=== PATIENT | female | born 1985 | race Caucasian/White ===

== ENCOUNTER 2016-05-30 12:22 | Emergency (ER) | payer OTHER ==
[~2016-05-30] VITALS: Ht 177.8 cm; Wt 103.0 kg
[~2016-05-30 12:22] MED LIST: CITRACAL PO; FERR89TA PO; FOLI-49 PO; PREN1TAB62 PO
[2016-05-30 12:25] VITALS: Ht 177.8 cm; Wt 103.0 kg
[2016-05-30 14:21] LABS: ADD SCAN DIFF NO
[2016-05-30 14:25] LABS: BASOPHILS % 0.3 % (0.0-2.0); EOSINOPHILS % 0.6 % (0.0-7.0); HEMATOCRIT 40.7 % (37.0-47.0); HEMOGLOBIN 14.4 g/dl (12.0-16.0); LYMPHOCYTES # 1.7 10^3/ul (0.8-2.9); LYMPHOCYTES % 24.9 % (15.0-51.0); MEAN CORPUSCULAR HEMOGLOBIN 34.2 pg (29.0-33.0); MEAN CORPUSCULAR HGB CONC 35.4 g/dl (32.0-37.0); MEAN CORPUSCULAR VOLUME 96.7 fl (82.0-101.0); MEAN PLATELET VOLUME 10.4 fl (7.4-10.4); MONOCYTE # 0.5 10^3/ul (0.3-0.9); MONOCYTES % 7.8 % (0.0-11.0); NEUTROPHIL # 4.5 10^3/ul (1.6-7.5); NEUTROPHILS % 66.1 % (39.0-77.0); PLATELET COUNT 237 10^3/UL (140-415); RED BLOOD COUNT 4.21 10^6/ul (4.20-5.40); RED CELL DISTRIBUTION WIDTH 11.5 % (11.5-14.5); WHITE BLOOD COUNT 6.8 10^3/ul (4.8-10.8)
[2016-05-30 14:31] LABS: ADD UMIC YES; URINE BILIRUBIN (Dip) NEGATIVE (NEGATIVE); URINE BLOOD (Dip) TRACE (NEGATIVE); URINE COLOR LT. YELLOW (YELLOW); URINE GLUCOSE (Dip) NEGATIVE (NEGATIVE); URINE KETONES (Dip) NEGATIVE (NEGATIVE); URINE LEUKOCYTE ESTERASE (Dip) 1+ (NEGATIVE); URINE NITRITE (Dip) NEGATIVE (NEGATIVE); URINE TOTAL PROTEIN (Dip) TRACE (NEGATIVE); URINE UROBILINOGEN (Dip) 0.2 E.U./dL (0.1-1.0)
[2016-05-30 14:40] LABS: BACTERIA,URINE FEW; MUCUS,URINE MODERATE
--- NOTE | 2016-05-30 14:59 | RADRPT ---
PROCEDURE: US OB. CLINICAL INDICATION: Vaginal bleeding TECHNIQUE: Transabdominal and transvaginal views of the pelvis are available for review. COMPARISON: No prior studies are available for comparison. FINDINGS: There is a single intrauterine gestation with the crown-rump length measuring 2.3 cm and the gestat ional sac measuring 4.4 cm, corresponding to a gestational age of 9 weeks and 4 days. The heart rate is noted at 182 bpm. The ovaries are normal in size and echogenicity. Normal Doppler flow is identified in both ovaries. The right ovary measures 4.3 x 2.1 cm. The left ovary measures 3.6 x 3.2 cm. There is no free fluid. RPTAT: AA IMPRESSION: Single live intrauterine with an estimated gestational age of 9 weeks and 4 days, based on ultrasound measurements. STEPHEN based on ultrasound measurements is 12/29/16. .Yang Monge MD, MD Date Time Electronically viewed and signed by .Yang Monge MD, on 05/30/2016 14:58 .S/
[2016-05-30] MEDS ORDERED: CEPH-443 PO (15:35)
--- NOTE | 2016-05-30 15:46 | ERD ---
ER Documentation Chief Complaint Date/Time DATE: 05/30/16 TIME: 15:37 Chief Complaint pelvic pain , x8 weeks HPI Patient is a 30-year-old female, G4, P3, who presents to the emergency department with low back pain, pelvic pain and vaginal spotting. Patient states she has had pain intermittently for the last 3 weeks. Patient states the pain originates in her lower back and radiates into her pelvic region. Patient states that the pain has been getting gradually worse. Patient states that today she started having vaginal spotting. Patient denies wearing any pads. Patient has not seen an [facility] yet. Patient denies any fevers, chills. Patient does admit to nausea and vomiting. Patient does have some pain with urination and suprapubic tenderness. Patient denies any frequency, urgency or hematuria. Patient states her last menstrual period was on March 14, 2016. Patient denies any saddle anesthesia, urinary incontinence, stool incontinence. ROS All systems reviewed and are negative except as per history of present illness. Medications Home Meds Active Scripts Cephalexin* (Keflex*) 500 Mg Capsule, 500 MG PO QID for 7 Days, CAP Prov:VERONICA BECKHAM PA-C 05/30/16 Reported Medications Calcium Citrate* (Citracal*) 950 Mg Tab, 950 MG PO DAILY, TAB 09/13/13 Folic Acid* (Folic Acid*) 1 Mg Tablet, 1 MG PO DAILY, TAB 09/13/13 Ferrous Fumarate (Ferrous Fumarate) 89 Mg Tablet, 89 MG PO DAILY 09/13/13 Vit-Iron Fumarate-FA ( Vitamin Tablet) 1 Each Tablet, 1 EACH PO DAILY 07/27/13 Allergies Allergies: Coded Allergies: No Known Drug Allergy (Verified Allergy, Unknown, 09/30/13) PMhx/Soc History of Surgery: Yes (cholecystectomy) Anesthesia Reaction: No Hx Neurological Disorder: No Hx Respiratory Disorders: No Hx Cardiac Disorders: No Hx Psychiatric Problems: No Hx Miscellaneous Medical Probl: No Hx Alcohol Use: No Hx Substance Use: No Hx Tobacco Use: No Smoking Status: Never smoker Physical Exam Vitals Vital Signs Date Time Temp Pulse Resp B/P Pulse Ox O2 Delivery O2 Flow Rate FiO2 05/30/16 12:25 98.1 71 18 145/69 99 Physical Exam GENERAL: Well-developed, well-nourished female. Appears in no acute distress. HEAD: Normocephalic, atraumatic. EYES: Pupils are equally reactive bilaterally. EOMs grossly intact. No conjunctival erythema. ENT: Moist mucous membranes. No uvula deviation. No kissing tonsils. NECK: Supple. No meningismus. Normal range of motion of the neck. LUNG: Clear to auscultation bilaterally. No rhonchi, wheezing, rales or coarse breath sounds. HEART: Regular rate and rhythm. No murmurs, rubs or gallops. ABDOMEN: No scars, ecchymosis or rashes noted. Soft and nondistended. Tender to palpation in the suprapubic region. Positive bowel sounds in all four quadrants. No rebound tenderness, no guarding. (-) McBurney's point tenderness. No CVA tenderness. BACK: No midline tenderness. EXTREMITIES: Equal pulses bilaterally. No peripheral clubbing, cyanosis or edema. No unilateral leg swelling. NEUROLOGIC: Alert and oriented. Moving all four extremities without any difficulty. Normal speech. Steady gait. SKIN: Normal color. Warm and dry. No rashes or lesions. Result Diagram: 05/30/16 1410 Results 24 hrs Laboratory Tests Test 05/30/16 14:10 White Blood Count 6.810^3/ul Red Blood Count 4.2110^6/ul Hemoglobin 14.4g/dl Hematocrit 40.7% Mean Corpuscular Volume 96.7fl Mean Corpuscular Hemoglobin 34.2pg Mean Corpuscular Hemoglobin Concent 35.4g/dl Red Cell Distribution Width 11.5% Platelet Count 31083^3/UL Mean Platelet Volume 10.4fl Neutrophils % 66.1% Lymphocytes % 24.9% Monocytes % 7.8% Eosinophils % 0.6% Basophils % 0.3% Nucleated Red Blood Cells % 0.0/100WBC Neutrophils # 4.510^3/ul Lymphocytes # 1.710^3/ul Monocytes # 0.510^3/ul Eosinophils # 0.010^3/ul Basophils # 0.010^3/ul Nucleated Red Blood Cells # 0.010^3/ul Urine Color LT. YELLOW Urine Clarity CLEAR Urine pH 5.5 Urine Specific [place] >=1.030 Urine Ketones NEGATIVE Urine Nitrite NEGATIVE Urine Bilirubin NEGATIVE Urine Urobilinogen 0.2 E.U./dL Urine Leukocyte Esterase 1+ Urine Microscopic RBC 2-5/HPF Urine Microscopic WBC 5-10/HPF Urine Epithelial Cells MODERATE Urine Bacteria FEW Urine Mucus MODERATE Urine Hemoglobin TRACE Urine Glucose NEGATIVE% Urine Total Protein TRACE Beta HCG, Quantitative 147858.0mIU/ml Procedures/MDM ED COURSE: The patient was stable throughout ED course. I kept the patient and/or family informed of laboratory and diagnostic imaging results throughout the ED course. DIAGNOSTIC IMAGING: Read by radiologist. DIAGNOSTIC IMAGING REPORT Patient: LAURITA MAURICE : 1985 Age: 30 Sex: F MR #: [id number] DOS: 05/30/16 1356 Ordering MD: VERONICA BECKHAM PA-C Location: [facility] Room/Bed: PROCEDURE: US OB. CLINICAL INDICATION: Vaginal bleeding TECHNIQUE: Transabdominal and transvaginal views of the pelvis are available for review. COMPARISON: No prior studies are available for comparison. FINDINGS: There is a single intrauterine gestation with the crown-rump length measuring 2.3 cm and the gestational sac measuring 4.4 cm, corresponding to a gestational age of 9 weeks and 4 days. The heart rate is noted at 182 bpm. The ovaries are normal in size and echogenicity. Normal Doppler flow is identified in both ovaries. The right ovary measures 4.3 x 2.1 cm. The left ovary measures 3.6 x 3.2 cm. There is no free fluid. RPTAT: AA IMPRESSION: Single live intrauterine with an estimated gestational age of 9 weeks and 4 days, based on ultrasound measurements. STEPHEN based on ultrasound measurements is 12/29/16. .Yang Monge MD, MD Date Time Electronically viewed and signed by .Yang Monge MD, MD on 05/30/2016 14: 58 .S/ CC: VERONICA BECKHAM PA-C MEDICAL DECISION MAKING: This is a 30-year-old female, G4, P3, who presents with pelvic pain, lower back pain and vaginal spotting. Patient is a vaginal spotting started today. Vital signs were reviewed. Patient was afebrile. Patient was hemodynamically stable. Urine test was positive. Quantitative b-HCG was [id number]. Given that patient was O+, Rhogam was not given. CBC showed no evidence of systemic infection or severe anemia. Pelvic US showed Single live intrauterine with an estimated gestational age of 9 weeks and 4 days, based on ultrasound measurements. Urinalysis showed positive leukocyte esterase, 5 to 10 WBCs. Given these findings, the patient's presentation is most consistent with IUP vs threatened and UTI. I have a much lower clinical concern for ectopic , ruptured ectopic , molar , subchorionic hematoma, incomplete , complete , missed , placental abruption, placental previa, vasa previa, uterine rupture, anembyronic , demise. Low suspicion for pyelonephritis or nephrolithiasis. PRESCRIPTIONS: Keflex DISCHARGE: At this time, patient is stable for discharge and outpatient management. Patient provided with a copy of all imaging and bloodwork obtained today. I had a conversation at length with the patient about the concerns of vaginal bleeding during the 1st trimester of . Patient and/or family understands that her vaginal bleeding can be a normal finding or a sign of miscarriage. I have instructed the patient to follow-up with her OBGYN in 1-2 days for further monitoring including a repeat b-HCG level. I have instructed the patient to promptly return to the ER at any time for any new or worsening symptoms including increased pain, nausea, vomiting, continued bleeding, weakness, syncope or fever. The patient and/or family expressed understanding of and agreement with this plan. All questions were answered. Home care instructions were provided. Departure Diagnosis: Primary Impression: Vaginal bleeding in patient at less than 20 weeks ges... Additional Impression: UTI (urinary tract infection) Urinary tract infection type: site unspecified Hematuria presence: without hematuria Qualified Code: N39.0 - Urinary tract infection without hematuria, site unspecified Condition: Stable Patient Instructions: Bleeding During Early Referrals: [facility] REFERRAL LIST Additional Instructions: Call your primary care doctor TOMORROW for an appointment during the next 1-2 days.See the doctor sooner or return here if your condition worsens before your appointment time. VERONICA BECKHAM PA-C May 30, 2016 15:46
== END 2016-05-30 15:42 | disposition home or self-care (01) ==
LOC: FTE 12:22
DX: O26.891 Other specified pregnancy related conditions, first trimester (principal); O86.20 Urinary tract infection following delivery, unspecified; R10.2 Pelvic and perineal pain; B97.89 Other viral agents as the cause of diseases classified elsewhere; Z3A.09 9 weeks gestation of pregnancy
CPT/HCPCS: 36415; 76801; 76817; 81001; 81003; 84702; 85025; 86900; 86901; Z7502